=== PATIENT | female | born 1945 | race Caucasian/White ===

== ENCOUNTER 2016-12-27 07:41 | Emergency (ER) | payer OTHER, MEDICARE ==
[~2016-12-27] VITALS: Ht 162.6 cm; Wt 65.0 kg
[2016-12-27 07:45] VITALS: BP 154/67; PULSE 71; RESP 16; TEMP 98.2; O2SAT 99
[2016-12-27] MEDS ORDERED: VIST50CA PO (08:11)
--- NOTE | 2016-12-27 08:12 | PD ---
HPI . Rash Chief Complaint: Allergic/Adverse Reaction Time Seen by Provider: 08:06 Travel History International Travel<30 days: No Contact w/Intl Traveler<30days: No Traveled to known affect area: No History of Present Illness HPI Patient presents with a rash which started about 8 PM last night. It is pruritic. She has no other associated symptoms such as shortness of breath or nausea. She does not have any idea what may have caused the rash. She states that she took one Benadryl last night along with her usual sleeping pill and went to bed. She awakened this morning with continued rash. She took another Benadryl at about 7 this morning and then presented here. She reports no relief with Benadryl. [facility] Past Medical History Diabetes: Yes Social History Tobacco Use: No Allergies-Medications (Allergen,Severity, Reaction): Coded Allergies: No Known Allergies (Unverified , 12/27/16) Review of Systems Except as stated in HPI: all other systems reviewed are Neg Respiratory: No: Shortness of Breath Gastrointestinal: No: Nausea, Vomiting Skin: Positive Rash Physical Exam Narrative GENERAL: Awake and alert and in no acute distress. SKIN: Warm and dry. Diffuse urticarial rash which is most pronounced on her forearms. HEAD: Atraumatic. Normocephalic. EYES: Pupils equal and round. Extraocular movements are intact. NECK: Trachea midline. Neck is supple. CARDIOVASCULAR: Regular rate and rhythm. Heart sounds are normal. RESPIRATORY: No accessory muscle use. Lungs are clear with full air movement throughout. ABDOMEN: Soft and nontender. MUSCULOSKELETAL: No obvious deformities. No edema. NEUROLOGICAL: Awake and alert. No obvious cranial nerve deficits. Motor grossly within normal limits. Normal speech. PSYCHIATRIC: Appropriate mood and affect; insight and judgment normal. Data Data Last Documented VS Vital Signs Date Time Temp Pulse Resp B/P Pulse Ox O2 Delivery O2 Flow Rate FiO2 12/27/16 07:45 98.2 71 16 154/67 99 Orders Hydroxyzine Hcl Inj (Vistaril Inj) (12/27/16 08:15) [facility] Medical Decision Making Medical Screen Exam Complete: Yes Emergency Medical Condition: Yes Differential Diagnosis The differential diagnosis of the skin rash includes but is not limited to allergic urticaria, scabies, insect bites, contact dermatitis Narrative Course Patient presents with an urticarial rash with no systemic symptoms. She will be treated with Vistaril. Diagnosis Primary Impression: Urticaria Patient Instructions: General Instructions, Urticaria (ED) Med/Other Pt SpecificInfo: Prescription(s) given Scripts Hydroxyzine Pamoate (Vistaril)50 Mg Cap50 Mg PO QID PRN (RASH) #30 CAP Ref 0 Prov:Monica Partida MD 12/27/16 Disposition: 01 DISCHARGE HOME Condition: Stable Monica Partida MD December 27, 2016 08:12
[2016-12-27] MEDS ORDERED: hydrOXYzine HCL 50 MG/ML VIAL IM ONE (08:15)
== END 2016-12-27 09:01 | disposition home or self-care (01) ==
LOC: NEPE 07:41
DX: L50.9 Urticaria, unspecified (principal)
CPT/HCPCS: 96372; 99284; J3410